=== PATIENT | female | born 1940 | race Caucasian/White ===

== ENCOUNTER 2016-08-25 14:10 | Emergency (ER) | payer OTHER ==
[~2016-08-25 14:10] MED LIST: ALLO300T2 PO; ATOR80TA41 PO; CIPR500T4 PO; EXTR500C PO; LEVO.1 PO; LISI10TA PO; METR-1 PO; OMPR20CCR PO; OXYC-360 PO
[2016-08-25 14:19] VITALS: BP 124/71; PULSE 80; RESP 18; TEMP 98.4; O2SAT 96
[2016-08-25 15:07] VITALS: BP_SYST 117; BP_SYST 126; BP_SYST 135; BP_DIAS 64; BP_DIAS 66; BP_DIAS 69; RESP 18
[2016-08-25 15:10] LABS: AUTOMATED NEUTROPHIL # 7.2 TH/MM3 (1.8-7.7); BASOPHIL # 0.1 TH/MM3 (0-0.2); BASOPHIL % 0.5 % (0.0-2.0); EOSINOPHIL # 0.1 TH/MM3 (0-0.4); EOSINOPHIL % 0.9 % (0.0-4.0); HEMATOCRIT 35.4 % (35.0-46.0); HEMO FLAGS DIFF FINAL; LYMPH % 27.8 % (9.0-44.0); MEAN CELL VOLUME 86.2 FL (80.0-100.0); MEAN CORPUSCULAR HEMOGLOBIN 29.6 PG (27.0-34.0); MEAN CORPUSCULAR HGB CONC 34.3 % (32.0-36.0); MONO % 4.7 % (0.0-8.0); NEUT % 66.1 % (16.0-70.0); PLATELET COUNT 237 TH/MM3 (150-450); RED BLOOD COUNT 4.11 MIL/MM3 (4.00-5.30); RED CELL DISTRIBUTION WIDTH 13.1 % (11.6-17.2); WHITE BLOOD COUNT 10.9 TH/MM3 (4.0-11.0)
[2016-08-25 15:17] LABS: CHLORIDE 103 MEQ/L (98-107); POTASSIUM 3.5 MEQ/L (3.5-5.1); SODIUM (NA) 143 MEQ/L (136-145)
[2016-08-25 15:21] LABS: ANION GAP 9 MEQ/L (5-15); BICARBONATE 31.5 MEQ/L (21.0-32.0)
[2016-08-25 15:22] LABS: APTT (PATIENT) 25.8 SEC (24.3-30.1); BLOOD UREA NITROGEN 16 MG/DL (7-18); INTERNATIONAL NORMALIZED RATIO 0.9 RATIO; PROTHROMBIN TIME - PATIENT 10.2 SEC (9.8-11.6)
[2016-08-25 15:24] LABS: ALT (GPT) 25 U/L (10-53); AST (GOT) 18 U/L (15-37); GLOMERULAR FILTRATION RATE 57 ML/MIN (>89)
[2016-08-25 15:27] LABS: ALKALINE PHOSPHATASE 114 U/L (45-117)
--- NOTE | 2016-08-25 15:38 | PD ---
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 , SHE SUDDENLY FELT ROOM SPINNING ABOUT HER AND SHE HAD TO HOLD ON TO WALL OR SHE FELT LIKE SHE WAS GOING TO FALL....DENIES MICHAUD/ SOB/FEVER/RINGING IN THE EARS/ CP/ABD PAIN AT THIS TIME MUCH IMPROVED PFSH Past Medical History Arthritis: Yes Anxiety: Yes Cancer: No Cardiovascular Problems: Yes High Cholesterol: Yes Diabetes: No Diminished Hearing: No Diverticulitis: Yes Endocrine: Yes Gastrointestinal Disorders: Yes GERD: Yes Genitourinary: No Hepatitis: No Hiatal Hernia: Yes Hypertension: Yes Immune Disorder: No Musculoskeletal: Yes Neurologic: Yes Psychiatric: Yes Reproductive: No Respiratory: No Thyroid Disease: Yes ?: Not Past Surgical History Gynecologic Surgery: Yes (HYSTERECTOMY) Hysterectomy: Yes Pacemaker: No Other Surgery: Yes Social History Alcohol Use: No Tobacco Use: No Substance Use: No Allergies-Medications (Allergen,Severity, Reaction): Coded Allergies: No Known Allergies (Unverified , 08/25/16) Reported Meds & Prescriptions Reported Meds & Active Scripts Active Active Prescriptions or Reported Medications Unobtainable Review of Systems Except as stated in HPI: all other systems reviewed are Neg Neurologic: Positive: Dizziness Physical Exam Narrative GENERAL: SKIN: Warm and dry. HEAD: Atraumatic. Normocephalic. EYES: Pupils equal and round. No scleral icterus. No injection or drainage. LATERAL NYSTAGMUS NOTED, FATIGUABLE, NO ROTARY OR VERTICAL COMPONENT ENT: No nasal bleeding or discharge. Mucous membranes pink and moist. NECK: Trachea midline. No JVD. CARDIOVASCULAR: Regular rate and rhythm. RESPIRATORY: No accessory muscle use. Clear to auscultation. Breath sounds equal bilaterally. GASTROINTESTINAL: Abdomen soft, non-tender, nondistended. Hepatic and splenic margins not palpable. MUSCULOSKELETAL: Extremities without clubbing, cyanosis, or edema. No obvious deformities. NEUROLOGICAL: Awake and alert. No obvious cranial nerve deficits. Motor grossly within normal limits. Five out of 5 muscle strength in the arms and legs. Normal speech. PSYCHIATRIC: Appropriate mood and affect; insight and judgment normal. Data Data Last Documented VS Vital Signs Date Time Temp Pulse Resp B/P Pulse Ox O2 Delivery O2 Flow Rate FiO2 08/25/16 15:07 82 18 126/66 80 18 135/69 86 18 117/64 08/25/16 14:19 98.4 96 Orders Electrocardiogram (08/25/16 14:35) Complete Blood Count With Diff (08/25/16 14:35) Comprehensive Metabolic Panel (08/25/16 14:35) Troponin I (08/25/16 14:35) Prothrombin Time / Inr (Pt) (08/25/16 14:35) Act Partial Throm Time (Ptt) (08/25/16 14:35) Lipase (08/25/16 14:35) Thyroid Stimulating Hormone (08/25/16 14:35) Ct Brain W/O Iv Contrast(Rout) (08/25/16 14:35) Iv Access Insert/Monitor (08/25/16 14:35) Orthostatic Vital Signs (08/25/16 14:35) Labs Laboratory Tests Test 08/25/16 15:00 White Blood Count 10.9 TH/MM3 Red Blood Count 4.11 MIL/MM3 Hemoglobin 12.2 GM/DL Hematocrit 35.4 % Mean Corpuscular Volume 86.2 FL Mean Corpuscular Hemoglobin 29.6 PG Mean Corpuscular Hemoglobin 34.3 % Concent Red Cell Distribution Width 13.1 % Platelet Count 237 TH/MM3 Mean Platelet Volume 7.1 FL Neutrophils (%) (Auto) 66.1 % Lymphocytes (%) (Auto) 27.8 % Monocytes (%) (Auto) 4.7 % Eosinophils (%) (Auto) 0.9 % Basophils (%) (Auto) 0.5 % Neutrophils # (Auto) 7.2 TH/MM3 Lymphocytes # (Auto) 3.0 TH/MM3 Monocytes # (Auto) 0.5 TH/MM3 Eosinophils # (Auto) 0.1 TH/MM3 Basophils # (Auto) 0.1 TH/MM3 CBC Comment DIFF FINAL Differential Comment Prothrombin Time 10.2 SEC Prothromb Time International 0.9 RATIO Ratio Activated Partial 25.8 SEC Thromboplast Time Sodium Level 143 MEQ/L Potassium Level 3.5 MEQ/L Chloride Level 103 MEQ/L Carbon Dioxide Level 31.5 MEQ/L Anion Gap 9 MEQ/L Blood Urea Nitrogen 16 MG/DL Creatinine 0.96 MG/DL Estimat Glomerular Filtration 57 ML/MIN Rate Random Glucose 90 MG/DL Calcium Level 8.8 MG/DL Total Bilirubin 1.0 MG/DL Aspartate Amino Transf 18 U/L (AST/SGOT) Alanine Aminotransferase 25 U/L (ALT/SGPT) Alkaline Phosphatase 114 U/L Troponin I LESS THAN 0.02 NG/ML Total Protein 7.4 GM/DL Albumin 3.8 GM/DL Lipase 306 U/L Thyroid Stimulating Hormone 0.309 uIU/ML 3rd Gen [facility] Medical Decision Making Medical Screen Exam Complete: Yes Emergency Medical Condition: Yes Medical Record Reviewed: Yes Interpretation(s) NSR 79, NL INTERVALS, NO STEMI PATTERN, NO STT ABNORMALITY Differential Diagnosis CENTRAL VERTIGO V PERIPHERAL VERTIGO V ICH V DEHYDRATION VS ANEMIA Narrative Course PATIENT WAS NOT FOUND TO HAVE E/O DEHYDRATION, ANEMIA, CT HEAD NEG FOR ICH, ONLY ABNORMALITY WAS A SCREENING TSH SUGGESTIVE HYPERTHYROID? CLINICALLY PATIENT HAD VERTIGO Diagnosis Primary Impression: ACUTE PERIPHERAL VERTIGO Additional Impression: POSSIBLE HYPERTHYROIDISM Scripts Meclizine 25 Mg Tab25 Mg PO TID PRN (VERTIGO) #21 TAB Ref 0 Prov:Marco A Marx MD 08/25/16 Disposition: 01 DISCHARGE HOME Condition: Stable Marco A Marx MD Aug 25, 2016 15:38
[2016-08-25] MEDS ORDERED: MECL-62 PO (15:42)
--- NOTE | 2016-08-25 15:52 | RADRPT ---
EXAM DATE/TIME: 08/25/2016 15:18 [place] COMPARISON: No previous studies available for comparison. INDICATIONS : Dizziness. RADIATION DOSE: 63.53 CTDIvol (mGy) MEDICAL HISTORY : Hypertension. SURGICAL HISTORY : None. ENCOUNTER: Initial ACUITY: 1 day PAIN SCALE: 0/10 LOCATION: cranial TECHNIQUE: Multiple contiguous axial images were obtained of the head. Using automated exposure control and adj ustment of the mA and/or kV according to patient size, radiation dose was kept as low as reasonably a chievable to obtain optimal diagnostic quality images. DICOM format image data is available electro nically for review and comparison. FINDINGS: There is no evidence for intracranial hemorrhage, mass effect, mass lesions, edema, or extra-axial fl uid collections. The visualized bony structures appear intact. The ventricles are normal size for t he patient's age. There are no signs of acute infarction for technique. CONCLUSION: Unremarkable study. Jayla Almeida MD on August 25, 2016 at 15:50 Board Certified Radiologist. This report was verified electronically.
--- NOTE | 2016-08-25 22:02 | EKG ---
Date Performed: 08/25/2016 Time Performed: 15:03:22 PTAGE: 75 years EKG: Sinus rhythm NORMAL ECG NO PREVIOUS TRACING DOCTOR: Antony Jj Interpretating Date/Time 08/25/2016 22:01:13
== END 2016-08-25 16:17 | disposition home or self-care (01) ==
LOC: PHED 14:10
DX: H81.399 Other peripheral vertigo, unspecified ear (principal); I10 Essential (primary) hypertension
CPT/HCPCS: 70450; 80053; 83690; 84443; 84484; 85025; 85610; 85730; 93005; 99285